=== PATIENT | female | born 1985 | race Two or more races ===

== ENCOUNTER 2017-10-02 18:48 | Emergency (ER) | payer OTHER ==
[~2017-10-02] VITALS: Ht 144.8 cm; Wt 59.4 kg
--- NOTE | 2017-10-02 19:10 | ED.ADGEN ---
Adult General Chief Complaint Chief Complaint " I have fever... I just got out of fdc... " HPI HPI Patient is a 32 year old female who presents with above hx of complaints. No history immunosuppression. Recent travel from [place]. No specific ill contacts. Patient normally healthy. Complaining of fever and sore throat. Patient seen at the [facility]. Review of Systems Review of Systems Constitutional: Complaints fever and chills Eyes: Denies change in visual acuity, redness, or eye pain [] HENT: Denies nasal congestion. Complaints of sore throat [] Respiratory: Denies cough or shortness of breath [] Cardiovascular: No additional information not addressed in HPI [] GI: Denies abdominal pain, nausea, vomiting, bloody stools or diarrhea [] : Hx. of dysuria Musculoskeletal: Denies back pain or joint pain [] Integument: Denies rash or skin lesions [] Neurologic: Denies headache, focal weakness or sensory changes [] Endocrine: Denies polyuria or polydipsia [] All other systems were reviewed and found to be within normal limits, except as documented in this note. Family History Family History Noncontributory Current Medications Current Medications Current Medications Medications (Trade) Dose Ordered Sig/Hector Start Time Stop Time Status Last Admin Dose Admin Acetaminophen (Tylenol) 1,000 mg 1X ONCE 10/02/17 19:30 10/02/17 19:31 DC 10/02/17 20:02 1,000 MG Ceftriaxone Sodium 1 gm/ Sodium Chloride 50 ml @ 100 mls/hr 1X ONCE 10/02/17 20:30 10/02/17 20:59 DC 10/02/17 20:40 100 MLS/HR Multivitamins/ Minerals 10 ml/ Folic Acid 1 mg/ Thiamine HCl 100 mg/Lactated Ringer's 1,011.1 ml @ 1,000 mls/ hr 1X ONCE 10/02/17 19:30 10/02/17 20:30 DC 10/02/17 20:06 1,000 MLS/HR Allergies Allergies Allergies Coded Allergies Type Severity Reaction Last Updated Verified No Known Drug Allergies 10/02/17 No Physical Exam Physical Exam Constitutional: Well developed, well nourished, no acute distress, non-toxic appearance. [] HENT: Normocephalic, atraumatic, bilateral external ears normal, oropharynx moist, active pharynx, no oral exudates, nose rhinorrhea Eyes: PERRLA, EOMI, conjunctiva normal, no discharge. [] Neck: Normal range of motion, no tenderness, supple, no stridor. [] Cardiovascular:Heart rate regular rhythm, no murmur [] Lungs & Thorax: Bilateral breath sounds clear to auscultation [] Abdomen: Bowel sounds normal, soft, no tenderness, no masses, no pulsatile masses. [] Skin: Warm, dry, no erythema, no rash. [] Back: No tenderness, no CVA tenderness. [] Extremities: No tenderness, no cyanosis, no clubbing, ROM intact, no edema. [] Neurologic: Alert and oriented X 3, normal motor function, normal sensory function, no focal deficits noted. [] Psychologic: Affect anxious judgement normal, mood normal. [] Current Patient Data Vital Signs Vital Signs Date Time Temp Pulse Resp B/P (MAP) Pulse Ox O2 Delivery O2 Flow Rate FiO2 10/02/17 19:00 98.0 105 109/62 (78) 96 Room Air Lab Results Laboratory Tests Test 10/02/17 19:00 10/02/17 19:15 10/02/17 20:42 Group A Streptococcus Rapid Negative (NEGATIVE) White Blood Count 13.2 x10^3/uL (4.0-11.0) H Red Blood Count 4.30 x10^6/uL (3.50-5.40) Hemoglobin 13.5 g/dL (12.0-15.5) Hematocrit 38.5 % (36.0-47.0) Mean Corpuscular Volume 90 fL (79-100) Mean Corpuscular Hemoglobin 31 pg (25-35) Mean Corpuscular Hemoglobin Concent 35 g/dL (31-37) Red Cell Distribution Width 12.2 % (11.5-14.5) Platelet Count 220 x10^3/uL (140-400) Neutrophils (%) (Auto) 82 % (31-73) H Lymphocytes (%) (Auto) 13 % (24-48) L Monocytes (%) (Auto) 5 % (0-9) Eosinophils (%) (Auto) 0 % (0-3) Basophils (%) (Auto) 0 % (0-3) Neutrophils # (Auto) 10.8 x10^3uL (1.8-7.7) H Lymphocytes # (Auto) 1.7 x10^3/uL (1.0-4.8) Monocytes # (Auto) 0.6 x10^3/uL (0.0-1.1) Eosinophils # (Auto) 0.0 x10^3/uL (0.0-0.7) Basophils # (Auto) 0.0 x10^3/uL (0.0-0.2) Urine Collection Type Unknown Urine Color Yellow Urine Clarity Cloudy Urine pH 7.5 Urine Specific [place] 1.015 Urine Protein Neg (NEG-TRACE) Urine Glucose (UA) Neg mg/dL (NEG) Urine Ketones (Stick) 15 mg/dL (NEG) Urine Blood Trace (NEG) Urine Nitrite Neg (NEG) Urine Bilirubin Neg (NEG) Urine Urobilinogen Dipstick 0.2 mg/dL (0.2 mg/dL) Urine Leukocyte Esterase Large (NEG) Urine RBC 3-5 /HPF (0-2) Urine WBC >40 /HPF (0-4) Urine Squamous Epithelial Cells Many /LPF Urine Bacteria Few /HPF (0-FEW) Sodium Level 138 mmol/L (136-145) Potassium Level 3.3 mmol/L (3.5-5.1) L Chloride Level 103 mmol/L (98-107) Carbon Dioxide Level 24 mmol/L (21-32) Anion Gap 11 (6-14) POC Urine HCG, Qualitative hcg negative (Negative) EKG EKG [] Radiology/Procedures Radiology/Procedures [] Course & Med Decision Making Course & Med Decision Making Pertinent Labs and Imaging studies reviewed. (See chart for details). Gargle with Listerine 4 times a day. Take Tylenol or ibuprofen. Follow-up primary care. Keflex 500 tid x 7 days. Follow up UA. Push fruit juices. Re-ckeck urine in 10 days. [] Final Impression Final Impression 1. Viral Syndrome[] 2. UTI Problems: Dragon Disclaimer Dragon Disclaimer This electronic medical record was generated, in whole or in part, using a voice recognition dictation system. ATIF PIERRE MD Oct 02, 2017 19:10
[2017-10-02] MEDS ORDERED: ACETAMINOPHEN 500 MG TABLET PO ONE (19:30)
[2017-10-02] MEDS ORDERED: MVI, ADULT NO.4 WITH VIT K 10 ML, FOLIC ACID SYRINGE for ER 1 MG, THIAMINE 100 MG in IV... IV ONE ×4 (19:30)
[2017-10-02 19:53] LABS: BASO % 0 % (0-3); EOS % 0 % (0-3); HEMATOCRIT 38.5 % (36.0-47.0); HEMOGLOBIN 13.5 g/dL (12.0-15.5); LYMPH # 1.7 x10^3/uL (1.0-4.8); LYMPH % 13 % (24-48); MEAN CORPUSCULAR HEMOGLOBIN 31 pg (25-35); MEAN CORPUSCULAR HGB CONC 35 g/dL (31-37); MEAN CORPUSCULAR VOLUME 90 fL (79-100); MONO # 0.6 x10^3/uL (0.0-1.1); MONO % 5 % (0-9); NEUT # 10.8 x10^3uL (1.8-7.7); NEUT % 82 % (31-73); PLATELET COUNT 220 x10^3/uL (140-400); RED CELL DISTRIBUTION WIDTH 12.2 % (11.5-14.5); WHITE BLOOD COUNT 13.2 x10^3/uL (4.0-11.0)
[2017-10-02 19:55] LABS: POTASSIUM 3.3 mmol/L (3.5-5.1)
[2017-10-02] MEDS ORDERED: THIAMINE 200 MG/2 ML VIAL. IV ONE (19:58)
[2017-10-02] MEDS ORDERED: FOLIC ACID 5 MG/ML SYRINGE for ER IV ONE (19:59)
[2017-10-02] MEDS ORDERED: MVI, ADULT NO.4 WITH VIT K 10 ML VIAL IV ONE (19:59)
[2017-10-02 20:04] LABS: BILIRUBIN,URINE NEG (NEG); CLARITY,URINE CLOUDY; COLOR,URINE YELLOW; GLUCOSE,URINE NEG (NEG)
[2017-10-02 20:05] LABS: BACTERIA,URINE FEW /HPF (0-FEW); NITRITE,URINE NEG (NEG); SQUAMOUS EPITHELIAL CELL,UR MANY /LPF; UROBILINOGEN,URINE 0.2 mg/dL (0.2 mg/dL); WBC,URINE >40 /HPF (0-4)
[2017-10-02] MEDS ORDERED: CEPH-264 PO (20:23)
[2017-10-02] MEDS ORDERED: IV NORMAL SALINE 50ML 50 ML ONE (20:36)
[2017-10-02] MEDS ORDERED: cefTRIAXone SODIUM 1 GM VIAL IV ONE (20:36)
[2017-10-02 21:23] VITALS: BP 98/61
== END 2017-10-02 21:30 | disposition home or self-care (01) ==
LOC: ER 18:48
DX: B34.9 Viral infection, unspecified (principal); N39.0 Urinary tract infection, site not specified
CPT/HCPCS: 36415; 80051; 81001; 81025; 85025; 87070; 87086; 87880; 96365; 96368; 99284; J0696; J7120

== ENCOUNTER 2017-11-26 22:07 | Emergency (ER) | payer OTHER ==
[~2017-11-26] VITALS: Ht 144.8 cm; Wt 63.5 kg
[~2017-11-26 22:07] MED LIST: CEPH-264 PO
--- NOTE | 2017-11-26 22:16 | ED.ADGEN ---
Past History Past Medical History: No Pertinent History Past Surgical History: No Surgical History Alcohol Use: None Drug Use: None Adult General Chief Complaint Chief Complaint " I feel like I got the flu... or strep throat..." HPI HPI Patient is a 32 year old female who presents with above hx and complaints of fever, myalgia, arthralgia, malaise and pharyngitis. Patient denies any specific ill contacts. No recent travel. No history of immunosuppression. Patient did receive a flu vaccination this year. Patient has had symptoms in the past 24 hours. No primary care currently Review of Systems Review of Systems Constitutional: Subjective fever or chills [] Eyes: Denies change in visual acuity, redness, or eye pain [] HENT: Complaints of nasal congestion and sore throat [] Respiratory: Denies cough or shortness of breath [] Cardiovascular: No additional information not addressed in HPI [] GI: Denies abdominal pain, nausea, vomiting, bloody stools or diarrhea [] : Denies dysuria or hematuria [] Musculoskeletal: Denies back pain or joint pain []complaints of myalgia and arthralgia Integument: Denies rash or skin lesions [] Neurologic: Denies headache, focal weakness or sensory changes [] Endocrine: Denies polyuria or polydipsia [] All other systems were reviewed and found to be within normal limits, except as documented in this note. Family History Family History Noncontributory Current Medications Current Medications Current Medications Medications (Trade) Dose Ordered Sig/Hector Start Time Stop Time Status Last Admin Dose Admin Acetaminophen (Tylenol) 1,000 mg 1X ONCE 11/26/17 23:00 11/26/17 23:01 DC 11/26/17 22:40 1,000 MG Prednisone (Prednisone) 60 mg 1X ONCE 11/26/17 23:00 11/26/17 23:01 DC 11/26/17 22:40 60 MG Allergies Allergies Allergies Coded Allergies Type Severity Reaction Last Updated Verified No Known Drug Allergies 10/02/17 No Physical Exam Physical Exam Constitutional: Well developed, well nourished, [id number] distress, non- toxic appearance. [] HENT: Normocephalic, atraumatic, bilateral external ears normal, oropharynx moist, injected pharynx,, no oral exudates, nose clear rhinorrhea and swollen turbinates Eyes: PERRLA, EOMI, conjunctiva normal, no discharge. [] Neck: Normal range of motion, no tenderness, supple, no stridor. [] Cardiovascular:Heart rate regular rhythm, no murmur [] Lungs & Thorax: Bilateral breath sounds equal apexes on auscultation [] Abdomen: Bowel sounds normal, soft, no tenderness, no masses, no pulsatile masses. [] Skin: Warm, dry, no erythema, no rash. [] Back: No tenderness, no CVA tenderness. [] Extremities: No tenderness, no cyanosis, no clubbing, ROM intact, no edema. [] Neurologic: Alert and oriented X 3, normal motor function, normal sensory function, no focal deficits noted. [] Psychologic: Affect normal, judgement normal, mood normal. [] Current Patient Data Vital Signs Vital Signs Date Time Temp Pulse Resp B/P (MAP) Pulse Ox O2 Delivery O2 Flow Rate FiO2 11/26/17 23:15 99.3 91 16 97/72 (80) 98 11/26/17 22:10 Room Air Lab Results Laboratory Tests Test 11/26/17 22:18 Influenza Type A (Rapid) Negative (NEGATIVE) Influenza Type B (Rapid) Negative (NEGATIVE) Group A Streptococcus Rapid Negative (NEGATIVE) EKG EKG [] Radiology/Procedures Radiology/Procedures [] Course & Med Decision Making Course & Med Decision Making Pertinent Labs and Imaging studies reviewed. (See chart for details). Gargle with Listerine 4 times a day. Take Tylenol as needed for discomfort. May also take ibuprofen as needed for discomfort and fever. Push fluids. Follow-up primary care. Benadryl 25-50 mg 4 times a day may be helpful. [] Final Impression Final Impression 1. Upper respiratory infection[] Problems: Dragon Disclaimer Dragon Disclaimer This electronic medical record was generated, in whole or in part, using a voice recognition dictation system. ATIF PIERRE MD Nov 26, 2017 22:16
[2017-11-26 22:53] LABS: INFLUENZA A PATIENT NEGATIVE (NEGATIVE); INFLUENZA B PATIENT NEGATIVE (NEGATIVE)
[2017-11-26] MEDS ORDERED: predniSONE 20 MG TABLET PO ONE (23:00)
[2017-11-26] MEDS ORDERED: ACETAMINOPHEN 500 MG TABLET PO ONE (23:00)
[2017-11-26 23:15] VITALS: BP 97/72
== END 2017-11-26 23:15 | disposition home or self-care (01) ==
LOC: ER 22:07
DX: J06.9 Acute upper respiratory infection, unspecified (principal)
CPT/HCPCS: 87070; 87804; 87880; 99284; J7512

== ENCOUNTER 2018-01-31 22:42 | Emergency (ER) | payer OTHER ==
[~2018-01-31] VITALS: Ht 144.8 cm; Wt 63.8 kg
[2018-01-31] MEDS ORDERED: diphenhydrAMINE HCL 25 MG CAPSULE PO ONE (23:15)
[2018-01-31] MEDS ORDERED: ONDANSETRON ODT 4 MG TAB.RAPDIS PO ONE (23:15)
[2018-01-31 23:25] VITALS: BP 101/52
[2018-01-31] MEDS ORDERED: METO10TA81 PO (23:27)
[2018-01-31] MEDS ORDERED: TRIA15CR50 TP (23:27)
--- NOTE | 2018-01-31 23:27 | PHYS DOC ---
Past History Past Medical History: No Pertinent History Past Surgical History: No Surgical History Alcohol Use: None Drug Use: None Adult General Chief Complaint Chief Complaint: SKIN RASH/ABSCESS HPI HPI Patient is a 32 year old female who presents with rash. The patient has 2 day history of pruritic rash to left chest. She denies fevers/chills, face/tongue/ lip swelling, shortness of breath. Applied "itch cream" at home without relief of symptoms. No known exposures to soaps, lotions, detergents, plants, no new foods or medications. She is 1-2 months , no care. Denies abdominal pain, vaginal bleeding. She has been nauseated without vomiting. She is staying at the [facility]. Review of Systems Review of Systems Constitutional: Denies fever or chills HENT: Denies nasal congestion or sore throat Respiratory: Denies cough or shortness of breath Cardiovascular: Denies chest pain GI: Reports nausea. Denies abdominal pain, vomiting Musculoskeletal: Denies back pain or joint pain Integument: Reports rash Neurologic: Denies headache All other systems were reviewed and found to be within normal limits, except as documented in this note. Current Medications Current Medications Current Medications Medications (Trade) Dose Ordered Sig/Hector Start Time Stop Time Status Last Admin Dose Admin Diphenhydramine HCl (Benadryl) 25 mg 1X ONCE 01/31/18 23:15 01/31/18 23:16 Ondansetron HCl (Zofran Odt) 4 mg 1X ONCE 01/31/18 23:15 01/31/18 23:16 Allergies Allergies Allergies Coded Allergies Type Severity Reaction Last Updated Verified No Known Drug Allergies 10/02/17 No Physical Exam Physical Exam Constitutional: Well developed, well nourished, no acute distress, non-toxic appearance. HENT: Normocephalic, atraumatic, bilateral external ears normal, oropharynx moist, nose normal. no face/tongue/lip swelling. Eyes: conjunctiva normal, no discharge. Neck: supple, no stridor. Cardiovascular: RRR, no murmurs, no edema. Lungs & Thorax: LCTAB, no wheezing, no respiratory distress. Abdomen: soft, nontender, nondistended. Skin: erythematous maculopapular rash without vesicles or urticaria to left upper chest Extremities: No tenderness, no edema. Neurologic: Alert and oriented X 3, no focal deficits noted. Psychologic: Affect normal, judgement normal, mood normal. EKG EKG [] Radiology/Procedures Radiology/Procedures [] Course & Med Decision Making Course & Med Decision Making Pertinent Labs and Imaging studies reviewed. (See chart for details) The patient presents with rash consistent with contact dermatitis. Recommend triamcinolone, benadryl. She vomited once while she was here. Gave prescriptions for triamcinolone & reglan. Recommend follow up in OB clinic with Dr. Rojas as soon as possible. Come back for face/tongue/lip swelling, severe shortness of breath, uncontrolled vomiting, severe abdominal pain, any otherwise worsening condition. Discharged home in stable condition. [] Dragon Disclaimer Dragon Disclaimer This electronic medical record was generated, in whole or in part, using a voice recognition dictation system. Departure Departure: Impression: Primary Impression: Contact dermatitis Additional Impression: Nausea and vomiting during Disposition: HOME, SELF-CARE Condition: STABLE Referrals: JOEY PITTMAN MD (PCP) Patient Instructions: Contact Dermatitis, [id number] Additional Instructions: You were seen in the emergency department today for rash. Please take benadryl as needed for itching. Use triamcinolone cream as needed. You can take reglan for nausea & vomiting. Please establish care with an OB doctor as soon as possible. You can make an appointment with Dr. Rojas at [facility]. Come back for face/tongue/lip swelling, severe shortness of breath, uncontrolled vomiting, any otherwise worsening condition. Scripts Metoclopramide Hcl (REGLAN) 10 Mg Tablet 1 TAB PO TID, #15 TAB Prov: ZE KAPOOR MD 01/31/18 Triamcinolone Acetonide (TRIAMCINOLONE ACETONIDE) 15 Gm Cream..g. 1 KAROLYN TP BID, #15 GM 1 Refill Prov: ZE KAPOOR MD 01/31/18 Problem Qualifiers Primary Impression: Contact dermatitis Contact dermatitis type: unspecified Contact dermatitis trigger: unspecified trigger Qualified Codes: L25.9 - Unspecified contact dermatitis, unspecified cause ZE KAPOOR MD Jan 31, 2018 23:27
== END 2018-01-31 23:30 | disposition home or self-care (01) ==
LOC: ER 22:42
DX: O99.711 Diseases of the skin and subcutaneous tissue complicating pregnancy, first trimester (principal); L25.9 Unspecified contact dermatitis, unspecified cause; O21.9 Vomiting of pregnancy, unspecified; Z3A.01 Less than 8 weeks gestation of pregnancy
CPT/HCPCS: 99283; Q0162; Q0163